=== PATIENT | male | born 1970 | race Caucasian/White ===

== ENCOUNTER 2020-07-14 04:48 | Emergency (ER) | payer SELFPAY ==
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
[2020-07-14 05:09] VITALS: BP 153/97; PULSE 89; RESP 18; TEMP 36.6; O2SAT 96
[2020-07-14] MEDS: Lidocaine/Epinephri/Tetracaine Topical Gel 6 ML TP (05:17)
[2020-07-14 05:19] VITALS: RESP 18
--- NOTE | 2020-07-14 06:31 | NUR.NOTE ---
Referral [facility] f/u for severe hemorrhoids. Copy to care management to establish pcp.Nursing Note:
== END 2020-07-14 06:30 | disposition home or self-care (01) ==
PROVIDERS: Emergency Provider Student in an Organized Health Care Education/Training Program
DX: K64.4 Residual hemorrhoidal skin tags (principal)
CPT/HCPCS: 99283

== ENCOUNTER 2021-11-27 06:51 | Emergency (ER) | payer SELFPAY ==
--- NOTE | 2021-11-27 06:45 | RT.EKG_ITS ---
APPROVED REPORT Exam: Resting ECG Reason for Exam: chest pain Patient Location: E HR:105 bpm ECG Measurements Heart Rate 105 AXIS PA 161 P 36 QRSd 100 QRS 98 QT 319 T 14 QTc 422 Conclusion Sinus tachycardia...rate> 99 Probable left atrial enlargement...P >50mS, <-0.10mV V1. Sinus. Normal axis. No STEMI. I have reviewed and interpreted ECG and agree with software generated interpretation.
--- NOTE | 2021-11-27 07:03 | ED.GENADUL_ITS ---
Discharge Plan Disposition Patient Disposition: HOME Condition: Stable Discharge Details Clinical Impression: SARS-CoV-2 positive, Headache, Chest pain, Shortness of breath, Back pain Primary Care Provider: None,None ED Provider: Gene Babin Home Meds and New Rx's Prescriptions: Discontinued naproxen sodium [Aleve] 220 MG capsule 440 mg PO PRN PRN Discharge Instructions Instructions: Chest Pain (ED), COVID-19 (Coronavirus Disease 2019) (ED) Additional Instructions: Please drink plenty of fluid to stay hydrated. Allow for plenty of rest. Please maintain home isolation for the next 5 days. For travel guidance, see CDC?s Travel webpage. Do not travel. Stay home and separate from others as much as possible. Use a separate bathroom, if possible. Take steps to improve ventilation at home, if possible. Don?t share personal household items, like cups, towels, and utensils. Monitor your symptoms. If you have an emergency warning sign (like trouble breathing), seek emergency medical care immediately. You may end isolation after day 5 if your symptoms are improving and you are fever free for 24 hours without the use of fever reducing medication. If your symptoms are not improving at day 5 continue to isolate until symptoms are improving and you are fever free for 24 hours without the use of fever reducing medication. Please contact your primary care physician to arrange follow-up. Return to the ER immediately for any worsening or new concerning symptoms. Discharge Data Discharge Date/Time-TO BE ENTERED AT DEPARTURE: 11/27/21 10:37 Medical Decision Making 0720 -- 51-year-old male with a history of obesity and daily tobacco use with history of hernia repair presents with multiple complaints including migraine, eyes burning, chest pain, shortness of breath, lower back pain and urinary frequency since last night. EKG notes a rate of 105, sinus, normal axis, no STEMI nondiagnostic. Patient appears comfortable and nontoxic. His oxygen saturation is 94 to 95% on room air which may be his baseline secondary to smoking. His heart rate is mildly elevated. Differential diagnosis includes COVID, flu, pneumonia, PE, UTI, pyelonephritis, less likely ACS. History and presentation does not appear consistent with CVA. Considering patient's age and multiple complaints, will obtain screening labs, CT chest abdomen pelvis and give IV Tylenol, IV Zofran, fluid bolus and reassess. 0800 -- Case endorsed oncoming provider to follow-up on labs and imaging and final disposition. Medical Records Medical records reviewed: Yes I reviewed the patient's medical records. ECG Data Attestation: I personally reviewed and interpreted this ECG (s) as follows: Interpretation: rate of 105, sinus, normal axis, no stemi. HPI General Mode of arrival: ambulatory . Date/Time Provider Initiated Documentation: 11/27/21 06:52 . Limitations to Documentation: no limitations . Information obtained by: patient . HPI Narrative: Patient is a 51-year-old male with a history of obesity and daily tobacco use who presents for headache, eyes burning, chest pain, shortness of breath and lower back pain since 1030 last night. Patient states symptoms awoke him from sleep. He describes the headache as a migraine and is diffuse. He describes the chest pain as left-sided and feels like a poking from his back straight through to his chest on the left side. He also feels like he cannot catch my breath . Patient also admits to lower back pain but later states the dog was sleeping on his back all night. He also then later states he feels that his eyes are burning because his plugged in an oil diffuser. Patient has not taken any meds for his symptoms. He denies any nasal congestion, sore throat, new cough or abdominal pain. He states he has been urinating more frequently but states he drank a lot of water since overnight. He denies any vomiting or diarrhea. Related Data Allergies Allergy/AdvReac Type Severity Reaction Status Date / Time No Known Allergies Allergy Unverified 11/27/21 07:23 General Stated Complaint: GenMedical SAUD: 4 Review of Systems All systems reviewed & are unremarkable except as noted in HPI and below Constitutional Constitutional: Reports as per HPI, Denies chills, Denies excessive sweating, Denies fatigue, Denies fever(s) and Reports headache(s) Eyes Eyes: Denies blurry vision and Reports irritation (eyes burning) ENT Ears, Nose, Mouth, and Throat: Denies dizziness, Reports headache(s), Denies sore throat and Denies throat swelling Cardiovascular Cardiovascular: Reports chest pain and Reports dyspnea Respiratory Respiratory: Denies cough and Reports dyspnea Gastrointestinal Gastrointestinal: Denies abdominal pain, Denies diarrhea, Reports nausea and Denies vomiting Genitourinary Genitourinary: Denies hematuria and Denies dysuria Musculoskeletal Musculoskeletal: Denies back pain and Denies numbness Integumentary/Breasts Skin/Breast: Denies lesions and Denies rash Neurologic Neurologic: Denies behavioral changes, Denies confusion, Denies dizziness, Reports headache(s), Denies localized weakness and Denies numbness Psychiatric Psychiatric: Denies behavioral changes, Denies confusion and Denies depression Endocrine Endocrine: Denies excessive sweating and Denies fatigue Hematologic/Lymphatic Hematologic/Lymphatic: Denies easy bruising and Denies lymphadenopathy Allergic/Immunologic Allergic/Immunologic: Denies throat swelling PFSH All Active Problems (Updated 11/27/21 @ 10:09 by Gene Babin MD) Headache (Acute) Chest pain (Acute) Shortness of breath (Acute) Back pain (Acute) SARS-CoV-2 positive (Acute) Ventral hernia without obstruction or gangrene (Acute) Hemorrhoid (Acute) Medical History Obesity Tobacco use Surgical History Repair of inguinal hernia left Family History Mother Diabetes Father Diabetes Heart disease Social History Smoking/Tobacco Use Status: Current every day Tobacco Type: cigarettes Smoking risk assessment performed?: Yes Alcohol Intake: current Alcohol Intake frequency: a few times a month Drug use: Never Substance use type: does not use Current gender identity: male Do you feel safe at home: Yes Do you feel safe in your relationship?: Yes Exam Const General: cooperative, healthy appearing and no acute distress Orientation: alert, awake and oriented x3 HENMT Head: normal to inspection Ears: hearing grossly normal bilaterally, external ears normal and TM's normal bilaterally General nose exam: external nose normal Face and sinus: normal facial exam Mouth: oral mucosae normal Teeth and gingiva: dentition normal Throat: posterior oropharynx normal Eyes General: appearance normal, both eyes and all related structures Eyelids: eyelids normal Pupils: PERRL EOM: EOM intact bilaterally Neck Neck: normal visual inspection and No submandibular swelling Lymphatic: no lymphadenopathy noted Chest Chest: normal inspection of the chest and no tenderness Resp Effort & Inspection: normal respiratory effort and able to speak in complete sentences Auscultation: clear to auscultation bilaterally Cardio Rate: tachycardic Rhythm: regular rhythm GI Inspection: normal to inspection Palpation: soft, not firm, no pulsatile masses, not rigid and nontender Auscultation: hypoactive bowel sounds Male General Exam: Yes normal external exam Back/Spine/Pelvis Back: no CVA tenderness Thoracic/Lumbar Spine: thoracic and lumbar spine normal to inspection Pelvis: no pain with anterior-posterior compression Back/spine/pelvis image: 1. Tenderness to palpation. No edema, erythema, ecchymoses, rash or lesions. Skin General skin exam: no rashes or lesions noted Neuro General: patient alert, patient awake and patient oriented x3 Cranial Nerves: CN's II-XI intact bilaterally Cognition: normal cognition Speech: speech normal Gait: normal gait Motor: muscle tone normal throughout and strength 5/5 throughout Sensory Exam: no sensory deficits noted Extrem General: normal to inspection, full ROM, capillary refill normal, no calf tenderness bilaterally and edema Laterality: bilateral (1+ b/l lower extremities) Psych Appearance: grossly normal Mental Status: mental status grossly normal Speech and Movement: speech and movement normal Affect: normal affect Thought Process: normal Sign Out Sign Out Data: Sign Out Comment: Headache, eyes burning, chest pain, shortness of breath, back pain and urinary frequency since last night. Follow-up on labs and imaging and final disposition. Last updated by Rani Hallman DO at 11/27/21 07:40
[2021-11-27 07:05] VITALS: BP 165/102; PULSE 105; RESP 24; TEMP 37.4; O2SAT 95
[2021-11-27 07:07] VITALS: RESP 18
--- NOTE | 2021-11-27 07:15 | DI.CT_ITS ---
Exam(s) CT CHEST PE ABD PELVIS W EXAM: CT CHEST PE ABD PELVIS W CLINICAL HISTORY: chest pain, sob, lower back pain. TECHNIQUE: Imaging Protocol: Axial CT angiography was performed with multi-slice acquisition and mu lti-planar and/or 3D reconstructions. CONTRAST MATERIAL: Intravenous: Omnipaque 350contrast volume:100 mL COMPARISON: CT ABD PELVIS WITH CONTRAST from 04/13/2015 FINDINGS: CHEST: Tracheobronchial tree: Patent where visualized. Pulmonary parenchyma: No consolidation or dominant measurable mass. No architectural distortion. Ther e is mild dependent atelectasis. Pulmonary Arteries: No evidence of filling defect to suggest pulmonary emboli. Mediastinum and Huong: No dominant adenopathy or fluid collection. The esophagus is unremarkable. Visualized thyroid gland: Unremarkable. Pleura: No effusion or pneumothorax. Heart: The heart is not dilated. Mild coronary artery calcification. No pericardial effusion. Aorta: Thoracic aorta non-dilated. No evidence of dissection. Bones: Within normal limits for the patient's age. Soft tissues: Bilateral gynecomastia. ABDOMEN: Liver: Normal density. No measurable mass. Portal, Superior Mesenteric, and Splenic Veins: Unremarkable. Gallbladder and Biliary Tract: No radiodense calculus or dilation. Pancreas: Normal density, no abnormal calcifications or inflammatory process. Spleen: Normal. Adrenals: No masses seen. Kidneys: Normal size, contour and axis. No radiodense stones or obstructive uropathy. No masses seen. 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 Abdominal Aorta: Abdominal portion non-dilated. Atherosclerosis. Bowel: No obstruction or bowel wall thickening. Appendix is unremarkable. Diverticulosis is seen in t he sigmoid colon, but no evidence of acute diverticulitis. Peritoneal Cavity: No ascites, collection or mesenteric inflammatory response. No free air. Lymph Nodes: Stable mildly enlarged retroperitoneal lymph nodes are present. Bones: Within normal limits for the patient's age. Soft Tissues: There is a fat containing right inguinal hernia. PELVIS: Bladder: Symmetric distention, no gross wall thickening. Reproductive Organs: Unremarkable as visualized. Lymph Nodes: Within normal limits. Bones: Within normal limits. IMPRESSION: 1. No evidence pulmonary embolism, thoracic aortic dissection or aneurysm. 2. No acute pulmonary process. 3. No acute abdominal or pelvic process. 4. Results of the exam were discussed with Dr. Babin at 9:35 a.m. on 11/27/2021. RADIATION DOSE DELIVERED: 1,953.65mGy.cm Total DLP DATA REPOSITORY: All CT scans at this facility are submitted to the National Radiology Data Registry (NRDR) Dose Index Registry (DIR) with the [employer] (A[employer]). RADIATION OPTIMIZATION: All CT scans at this facility use at least one of these dose optimization te chniques: automated exposure control; mA and/or kV adjustment per patient size (includes targeted exa ms where dose is matched to clinical indication); or iterative reconstruction.
[2021-11-27] MEDS: Ondansetron 4 MG/2 ML VIAL IVP (07:37)
[2021-11-27] MEDS: ACETAMINOPHEN 1,000 MG/100 ML BTL 400 MG IVPB (07:38)
[2021-11-27 07:47] LABS: Abs Immature Grans 0.04 10^3/uL (0.0-0.06); Absolute Basophil Count 0.03 10^3/uL (0.0-0.2); Absolute Eosinophil Count 0.02 10^3/uL (0.0-0.7); Absolute Lymphocyte Count 0.31 10^3/uL (1.2-3.4); Absolute Monocyte Count 0.59 10^3/uL (0.1-0.8); Absolute Neutrophil Count 5.61 10^3/uL (1.2-6.7); Basophils % 0.5; Eosinophils % 0.3; HGB 16.6 g/dL (13.5-17.5); Immature Grans % 0.6; Lymphocytes % 4.7; MCH 29.1 pg (27.0-33.0); MCHC 33.2 % (32.0-36.0); MCV 88 fL (80-95); MPV 9.3 fL (8.0-11.0); Monocytes % 8.9; Platelet Count 199 10^3/uL (130-400); RDW 12.5 % (11.8-14.1); RDW-SD 40.2 fL
[2021-11-27 08:03] LABS: Source Nasal/Nares
[2021-11-27 08:16] LABS: ALT 53 U/L (16-63); AST 32 U/L (15-37); Albumin 3.8 g/dL (3.4-5.0); Alkaline Phosphatase 109 U/L (46-116); Anion Gap 9.1 mmol/L (3-11); BUN 16 mg/dL (7-18); Bilirubin, Total 0.4 mg/dL (0.2-1.0); CO2 26.9 mmol/L (21.0-32.0); CREATININE 1.1 mg/dL (0.70-1.30); Calcium 8.8 mg/dL (8.5-10.1); Chloride 101 mmol/L (98-107); Estimated GFR 80.27 (mL/min/1.73m2); Glucose 139 mg/dL (74-106); Lipase 90 U/L (73-393); Magnesium 1.6 mg/dL (1.8-2.4); NT-proBNP 90 pg/mL (<300); Potassium 4.1 mmol/L (3.5-5.1); Sodium 137 mmol/L (136-145); Total Protein 7.7 g/dL (6.4-8.2); Troponin I < 50 ng/L (<or=60)
[2021-11-27 08:44] LABS: COVID-19 PCR POSITIVE (Negative)
[2021-11-27 08:53] LABS: Bilirubin Negative (Negative); Blood Negative (Negative); Clarity Clear (Clear); Glucose Negative (Negative); Ketones Negative (Negative); Leukocyte Esterase Negative (Negative); Nitrite Negative (Negative); Specific Gravity >= 1.030 (1.005-1.025); Urobilinogen 0.2 EU/dL (Up TO 0.2); pH 5.5 (5-8)
[2021-11-27] MEDS: Omnipaque 350 MG/ML 500 ML BTL-Imaging package IJ (08:56)
[2021-11-27] MEDS: Normal Saline Flush 10 ML SYR IVP (08:57)
--- NOTE | 2021-11-27 09:45 | RT.EKG_ITS ---
APPROVED REPORT Exam: Resting ECG Reason for Exam: chest pain Patient Location: E HR:85 bpm ECG Measurements Heart Rate 85 AXIS GA 175 P 40 QRSd 103 QRS 80 QT 358 T 26 QTc 427 Conclusion Sinus rhythm...normal P axis, V-rate 60- 99
[2021-11-27] MEDS: Magnesium Oxide 400 MG TAB PO (09:48)
--- NOTE | 2021-11-27 10:05 | W.EDPROG ---
Date of service: 11/27/21 Time of Service: 10:05 Medical Decision Making Patient was signed out by Dr. Hallman, please see her documentation regarding initial ED presentation course. Labs reviewed and mild hypomagnesemia noted. I will give Mag-Ox 400 mg. Initial troponin negative. No leukocytosis. COVID is positive. Interpreted by rate CT of the chest for PE and abdomen and pelvis interpreted by radiology: Negative, no acute process or notable finding. I spoke with Dr. Cr about this CT scan. Plan to initiate treatment withpaxlovid given risk factors. I discussed treatment plan with patient and he provided informed refusal of antiviral, COVID treatment. EKG was reviewed and interpreted by me: Please report, no significant changes from prior, nondiagnostic. Delta troponin negative. Plan for discharge with outpatient follow-up. Patient does not currently have a primary care physician. I will ask care management assistance in arranging outpatient follow-up. Lab Data Lab results reviewed: Yes I reviewed the patient's lab results. Labs: Laboratory Tests Range/Units 11/27/21 11/27/21 11/27/21 07:03 07:03 07:23 WBC (4.4-10.8) 10^3/uL 6.60 RBC (4.36-5.78) 10^6/uL 5.70 Hgb (13.5-17.5) g/dL 16.6 Hct (40.0-50.0) % 50.0 MCV (80-95) fL 88 MCH (27.0-33.0) pg 29.1 MCHC (32.0-36.0) % 33.2 RDW (11.8-14.1) % 12.5 Plt Count (130-400) 10^3/uL 199 MPV (8.0-11.0) fL 9.3 Immature Gran % 0.6 Neutrophils % 85.0 Lymphocytes % 4.7 Monocytes % 8.9 Eosinophils % 0.3 Basophils % 0.5 Nucleated RBC % (0.0-0.3) % 0.0 Absolute Neutrophils (1.2-6.7) 10^3/uL 5.61 Absolute Lymphocytes (1.2-3.4) 10^3/uL 0.31 L Absolute Monocytes (0.1-0.8) 10^3/uL 0.59 Absolute Eosinophils (0.0-0.7) 10^3/uL 0.02 Absolute Basophils (0.0-0.2) 10^3/uL 0.03 Sodium (136-145) mmol/L 137 Potassium (3.5-5.1) mmol/L 4.1 Chloride (98-107) mmol/L 101 Carbon Dioxide (21.0-32.0) mmol/L 26.9 Anion Gap (3-11) mmol/L 9.1 BUN (7-18) mg/dL 16 Creatinine (0.70-1.30) mg/dL 1.1 Est GFR (CKD-EPI 2020) (mL/min/1.73m2) 80.27 Glucose (74-106) mg/dL 139 H Calcium (8.5-10.1) mg/dL 8.8 Magnesium (1.8-2.4) mg/dL 1.6 L Total Bilirubin (0.2-1.0) mg/dL 0.4 AST (15-37) U/L 32 ALT (16-63) U/L 53 Alkaline Phosphatase (46-116) U/L 109 Troponin I (<or=60) ng/L < 50 NT-Pro-B Natriuret Pep (<300) pg/mL 90 Total Protein (6.4-8.2) g/dL 7.7 Albumin (3.4-5.0) g/dL 3.8 Lipase (73-393) U/L 90 Urine Color (Yellow) Urine Clarity (Clear) Urine pH (5-8) Ur Specific [place] (1.005-1.025) Urine Protein (Negative) mg/dL Urine Ketones (Negative) mg/dL Urine Blood (Negative) Urine Nitrite (Negative) Urine Bilirubin (Negative) Urine Urobilinogen (Up TO 0.2) EU/dL Ur Leukocyte Esterase (Negative) Urine Glucose (Negative) mg/dL COVID-19 Source Cancelled SARS-CoV-2 (PCR) Cancelled Influenza Type A (PCR) Cancelled Influenza Type B (PCR) Cancelled RSV (PCR) Cancelled Range/Units 11/27/21 11/27/21 07:44 08:45 WBC (4.4-10.8) 10^3/uL RBC (4.36-5.78) 10^6/uL Hgb (13.5-17.5) g/dL Hct (40.0-50.0) % MCV (80-95) fL MCH (27.0-33.0) pg MCHC (32.0-36.0) % RDW (11.8-14.1) % Plt Count (130-400) 10^3/uL MPV (8.0-11.0) fL Immature Gran % Neutrophils % Lymphocytes % Monocytes % Eosinophils % Basophils % Nucleated RBC % (0.0-0.3) % Absolute Neutrophils (1.2-6.7) 10^3/uL Absolute Lymphocytes (1.2-3.4) 10^3/uL Absolute Monocytes (0.1-0.8) 10^3/uL Absolute Eosinophils (0.0-0.7) 10^3/uL Absolute Basophils (0.0-0.2) 10^3/uL Sodium (136-145) mmol/L Potassium (3.5-5.1) mmol/L Chloride (98-107) mmol/L Carbon Dioxide (21.0-32.0) mmol/L Anion Gap (3-11) mmol/L BUN (7-18) mg/dL Creatinine (0.70-1.30) mg/dL Est GFR (CKD-EPI 2020) (mL/min/1.73m2) Glucose (74-106) mg/dL Calcium (8.5-10.1) mg/dL Magnesium (1.8-2.4) mg/dL Total Bilirubin (0.2-1.0) mg/dL AST (15-37) U/L ALT (16-63) U/L Alkaline Phosphatase (46-116) U/L Troponin I (<or=60) ng/L NT-Pro-B Natriuret Pep (<300) pg/mL Total Protein (6.4-8.2) g/dL Albumin (3.4-5.0) g/dL Lipase (73-393) U/L Urine Color (Yellow) Yellow Urine Clarity (Clear) Clear Urine pH (5-8) 5.5 Ur Specific [place] (1.005-1.025) >= 1.030 H Urine Protein (Negative) mg/dL Negative Urine Ketones (Negative) mg/dL Negative Urine Blood (Negative) Negative Urine Nitrite (Negative) Negative Urine Bilirubin (Negative) Negative Urine Urobilinogen (Up TO 0.2) EU/dL 0.2 Ur Leukocyte Esterase (Negative) Negative Urine Glucose (Negative) mg/dL Negative COVID-19 Source Nasal/Nares SARS-CoV-2 (PCR) POSITIVE A* Influenza Type A (PCR) Influenza Type B (PCR) RSV (PCR) Sign Out Sign Out Data: Sign Out Comment: Headache, eyes burning, chest pain, shortness of breath, back pain and urinary frequency since last night. Follow-up on labs and imaging and final disposition. Last updated by Rani Hallman DO at 11/27/21 07:40 Discharge Plan Disposition Patient Disposition: HOME Condition: Stable Discharge Details Clinical Impression: SARS-CoV-2 positive, Headache, Chest pain, Shortness of breath, Back pain Primary Care Provider: None,None ED Provider: Gene Babin Home Meds and New Rx's Prescriptions: Discontinued naproxen sodium [Aleve] 220 MG capsule 440 mg PO PRN PRN Discharge Instructions Instructions: Chest Pain (ED), COVID-19 (Coronavirus Disease 2019) (ED) Additional Instructions: Please drink plenty of fluid to stay hydrated. Allow for plenty of rest. Please maintain home isolation for the next 5 days. For travel guidance, see CDC?s Travel webpage. Do not travel. Stay home and separate from others as much as possible. Use a separate bathroom, if possible. Take steps to improve ventilation at home, if possible. Don?t share personal household items, like cups, towels, and utensils. Monitor your symptoms. If you have an emergency warning sign (like trouble breathing), seek emergency medical care immediately. You may end isolation after day 5 if your symptoms are improving and you are fever free for 24 hours without the use of fever reducing medication. If your symptoms are not improving at day 5 continue to isolate until symptoms are improving and you are fever free for 24 hours without the use of fever reducing medication. Please contact your primary care physician to arrange follow-up. Return to the ER immediately for any worsening or new concerning symptoms. Discharge Data Discharge Date/Time-TO BE ENTERED AT DEPARTURE: 11/27/21 10:37
[2021-11-27 10:26] LABS: Troponin I < 50 ng/L (<or=60)
--- NOTE | 2021-11-27 10:30 | NUR.NOTE ---
Nursing Note: Referral given to Care Management pt needs PCP, establish care/chest pain in 1 week.
--- NOTE | 2021-11-28 16:02 | CMACTNOTE_ITS ---
- If Service Date Differs Date of service: 11/28/21 Time of Service: 16:02 Care Management Activity Note Inderjit is seen in the ED for Covid symptoms. At the request of ED provider, CM coordinates a referral to Brittnee Bey MD, of [facility], on-call provider, to assist Inderjit in obtaining a follow up appointment and in establishing care with a PCP.
== END 2021-11-27 10:37 | disposition home or self-care (01) ==
PROVIDERS: Physician Assistant; Emergency Provider Student in an Organized Health Care Education/Training Program
DX: U07.1 COVID-19 (principal); M54.50 Low back pain, unspecified; E83.42 Hypomagnesemia; F17.290 Nicotine dependence, other tobacco product, uncomplicated
CPT/HCPCS: 36415; 71275; 74177; 80053; 83690; 87635; 87637; 93005; 96374; 96375; 99285; 81003; 83735; 83880; 84484; 85025; 93010; J0131; J2405